=== PATIENT | female | born 1970 | race Two or more races ===

== ENCOUNTER 2024-09-02 07:46 | Outpatient (CLI) | payer OTHER | END 2024-09-02 07:56 | disposition home or self-care (01) | LOC: SONOGRAMA 07:46 | PROVIDERS: ATTEND General Practice | DX: E66.9 Obesity, unspecified (principal); Z00.01 Encounter for general adult medical examination with abnormal findings; I11.9 Hypertensive heart disease without heart failure ==

== ENCOUNTER → 2024-09-02 08:43 | Outpatient (CLI) | payer OTHER ==
[2024-09-02 10:34] LABS: BASO % 0.2 % (0.1-1.2); EOS # 0.01 (0.04-0.54); EOS % 0.2 % (0.7-7.0); HEMATOCRIT 42.5 % (34.1-44.9); HEMOGLOBIN 13.7 g/dL (11.2-15.7); LYMPH # 1.72 (1.18-3.74); LYMPH % 27.4 % (19.3-53.1); MEAN CORPUSCULAR HEMOGLOBIN 29.3 pg (25.6-32.2); MONO # 0.46 (0.24-0.82); MONO % 7.3 % (4.7-12.5); NEUT # 4.06 (1.56-6.13); NEUT % 64.7 % (34.0-71.1); PLATELET COUNT 257 K/uL (163-369); RED BLOOD COUNT 4.68 M/uL (3.93-5.22); RED CELL DISTRIBUTION WIDTH 13.7 % (11.6-14.4)
[2024-09-02 11:17] LABS: PH,URINE 5.5 (5.0-8.0); URINE APPEARANCE Clear; URINE BILIRRUBIN Negative (NEGATIVE); URINE BLOOD Negative; URINE COLOR Yellow; URINE GLUCOSE Negative (NEGATIVE); URINE KETONE Negative (NEGATIVE); URINE LEUKOCYTE Trace; URINE NITRATE Negative; URINE PROTEIN Negative (NEGATIVE); URINE UROBILINOGEN 0.2 E.U./dl
[2024-09-02 11:20] LABS: URINE BACTERIA 4415.9 uL (0.0-1933); URINE EPITHELIAL CELLS 78.2 uL (0.0-38.8); URINE RBC 4.4 uL (0.0-20.8); URINE WBC 23.1 uL (0.0-23.2)
[2024-09-02 11:21] LABS: URINE CAST 0.14 uL (0.0-1.40)
[2024-09-02 12:01] LABS: ALBUMIN 3.9 gm/dL (3.4-5.0); BILIRUBIN TOTAL 0.34 mg/dL (0.3-1.2); CALCIUM 9.3 mg/dL (8.5-10.1); CHOL HDL RATIO 2.7 (0-5.0); CREATININE SERUM 0.9 mg/dL (0.55-1.02); GFR 65.5; POTASSIUM 4.27 mEq/L (3.5-5.1); TOTAL PROTEIN 7.9 gm/dL (6.4-8.2); TSH 0.755 uIU/mL (0.358-3.74)
[2024-09-02 14:29] LABS: ob NEGATIVE (NEGATIVE)
== END | disposition home or self-care (01) ==
LOC: LAB 08:43
PROVIDERS: ATTEND General Practice
DX: E66.9 Obesity, unspecified (principal); Z00.01 Encounter for general adult medical examination with abnormal findings; Z68.34 Body mass index [BMI] 34.0-34.9, adult; I11.9 Hypertensive heart disease without heart failure; E11.69 Type 2 diabetes mellitus with other specified complication; N39.0 Urinary tract infection, site not specified; E55.9 Vitamin D deficiency, unspecified; E05.90 Thyrotoxicosis, unspecified without thyrotoxic crisis or storm

== ENCOUNTER → 2024-12-20 07:50 | Outpatient (CLI) | payer OTHER ==
[2024-12-20 09:40] LABS: BASO % 0.4 % (0.1-1.2); EOS # 0.02 (0.04-0.54); EOS % 0.3 % (0.7-7.0); LYMPH # 2.48 (1.18-3.74); LYMPH % 36.5 % (19.3-53.1); MEAN PLATELET VOLUME 10.20 fl (9.4-12.4); MONO # 0.58 (0.24-0.82); MONO % 8.5 % (4.7-12.5); NEUT # 3.66 (1.56-6.13); NEUT % 54.0 % (34.0-71.1); RED CELL DISTRIBUTION WIDTH 14.2 % (11.6-14.4)
[2024-12-20 10:13] LABS: ALT/SGPT 26.0 U/L (12-78); AST/SGOT 25.0 U/L (15-37); BILIRUBIN TOTAL 0.24 mg/dL (0.3-1.2); BUN CREA RATIO 21.0 (7.0-25.0); CHOL HDL RATIO 2.3 (0-5.0); CREATININE SERUM 0.75 mg/dL (0.55-1.02); GFR 80.83; GLOBULINA 4.0 G/DL (2.4-3.5); GLUCOSE FASTING 90.0 mg/dL (65-100); HDL 91.0 mg/dl (40-60); LDL 104.0 mg/dl (0-130); OSMOLALITY SERUM 284.0 MOSM/KG (275-295); VLDL 10.0 (0-39)
[2024-12-23 09:11] LABS: hav igm Negative (Negative); hep b c Negative (Negative); hep b s ag Negative (Negative)
[2024-12-23 21:11] LABS: chla t Negative (Negative); neiss Negative (Negative)
== END | disposition home or self-care (01) ==
LOC: LAB 07:50
DX: I10 Essential (primary) hypertension (principal)